=== PATIENT | male | born 1995 | race Caucasian/White ===

== ENCOUNTER 2019-03-11 12:11 | Emergency (ER) | payer OTHER ==
[~2019-03-11] VITALS: Ht 182.9 cm; Wt 63.5 kg
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
[2019-03-11 12:37] LABS: BASO # 0.1 x10^3/uL (0.0-0.2); BASO % 1 % (0-3); EOS # 0.2 x10^3/uL (0.0-0.7); EOS % 4 % (0-3); HEMATOCRIT 41.8 % (39.0-53.0); HEMOGLOBIN 14.3 g/dL (13.0-17.5); LYMPH # 2.2 x10^3/uL (1.0-4.8); LYMPH % 36 % (24-48); MEAN CORPUSCULAR HEMOGLOBIN 30 pg (25-35); MEAN CORPUSCULAR HGB CONC 34 g/dL (31-37); MEAN CORPUSCULAR VOLUME 86 fL (79-100); MONO # 0.5 x10^3/uL (0.0-1.1); MONO % 8 % (0-9); NEUT # 3.2 x10^3/uL (1.8-7.7); NEUT % 52 % (31-73); PLATELET COUNT 227 x10^3/uL (140-400); RED BLOOD COUNT 4.85 x10^6/uL (4.30-5.70); RED CELL DISTRIBUTION WIDTH 12.9 % (11.5-14.5); WHITE BLOOD COUNT 6.2 x10^3/uL (4.0-11.0)
[2019-03-11 12:38] LABS: CALCIUM 9.2 mg/dL (8.5-10.1); CREATININE 1.1 mg/dL (0.7-1.3); POTASSIUM 3.4 mmol/L (3.5-5.1)
[2019-03-11 12:46] LABS: ALBUMIN 4.2 g/dL (3.4-5.0); ALBUMIN/GLOBULIN RATIO 1.2 (1.0-1.7); TOTAL BILIRUBIN 0.7 mg/dL (0.2-1.0); TOTAL PROTEIN 7.7 g/dL (6.4-8.2)
--- NOTE | 2019-03-11 12:46 | EKG ---
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
[2019-03-11] MEDS ORDERED: HYDROcodone/APAP 5/325MG 1 TAB TABLET PO ONE (13:15)
[2019-03-11 13:40] LABS: BARBITURATES NEG (NEG); BENZODIAZEPINES NEG (NEG); CANNABINOIDS NEG (NEG); COCAINE NEG (NEG); METHADONE NEG (NEG); OPIATES NEG (NEG); PHENCYCLIDINE NEG (NEG)
[2019-03-11 13:46] LABS: AMPHETAMINE/METHAMPHETAMINE NEG (NEG)
[2019-03-11] MEDS ORDERED: CYCL10TA2 PO (14:23)
[2019-03-11 14:45] VITALS: BP 125/72
== END 2019-03-11 15:00 | disposition home or self-care (01) ==
LOC: ER 12:11
DX: S16.1XXD Strain of muscle, fascia and tendon at neck level, subsequent encounter (principal); S09.8XXA Other specified injuries of head, initial encounter; E87.6 Hypokalemia; R41.0 Disorientation, unspecified; Z88.6 Allergy status to analgesic agent; V43.52XA Car driver injured in collision with other type car in traffic accident, initial encounter; Y92.488 Other paved roadways as the place of occurrence of the external cause; Y93.89 Activity, other specified; Y99.8 Other external cause status
CPT/HCPCS: 36415; 70450; 72125; 80053; 80307; 85025; 93005; 99285-25

== ENCOUNTER 2022-01-18 17:05 | Emergency (ER) | payer OTHER ==
[~2022-01-18] VITALS: Ht 185.4 cm; Wt 71.8 kg
[~2022-01-18 17:05] MED LIST: CYCL10TA19 PO
[2022-01-18 17:17] VITALS: BP 145/75
[2022-01-18] MEDS ORDERED: LIDOCAINE 2% Multi-Dose 20 ML VIAL. IJ ONE (17:30)
[2022-01-18] MEDS ORDERED: HYDR-2761 PO (18:40)
--- NOTE | 2022-01-18 18:40 | PHYS DOC ---
Past Medical History Past Medical History: Seizure Past Surgical History: No Surgical History, Other Smoking Status: Never Smoker Alcohol Use: Rarely Drug Use: None General Adult EDM: Chief Complaint: LACERATION/AVULSION HPI: HPI: Patient is a 26 year old male who presents the ED today with right index finger laceration that occurred while cleaning a pizza cutter. Patient is right- handed. Review of Systems: Review of Systems: Constitutional: Denies fever or chills. [] Musculoskeletal: Denies back pain or joint pain. [] Integument: Reports right index finger laceration Neurologic: Denies headache, focal weakness or sensory changes. [] Psychiatric: Denies depression or anxiety. [] Heart Score: C/O Chest Pain: N/A Risk Factors: Risk Factors: DM, Current or recent (<one month) smoker, HTN, HLP, family history of CAD, obesity. Risk Scores: Score 0 - 3: 2.5% MACE over next 6 weeks - Discharge Home Score 4 - 6: 20.3% MACE over next 6 weeks - Admit for Clinical Observation Score 7 - 10: 72.7% MACE over next 6 weeks - Early Invasive Strategies Current Medications: Current Medications Medications (Trade) Dose Ordered Sig/Danny Start Time Stop Time Status Last Admin Dose Admin Lidocaine HCl (Lidocaine 2% 20ml Vial) 20 ml 1X ONCE 01/18/22 17:30 01/18/22 17:32 DC 01/18/22 17:36 20 ML Allergies: Allergies: Allergies Coded Allergies Type Severity Reaction Last Updated Verified NSAIDS (Non-Steroidal Anti-Inflamma Allergy Intermediate 01/18/22 Yes aspirin Allergy Intermediate 03/11/19 Yes Physical Exam: PE: Constitutional: Well developed, well nourished, no acute distress, non-toxic appearance. [] [] Skin: Ventral aspect of the right index finger middle phalanges with a laceration in V-shaped roughly 3 cm long, there is no obvious tendon involvement. Patient able to flex and extend the finger with no difficulties. Adequate radial sensation to the right index finger. +2 right radial pulse. Cap refill less than 2 seconds of right index finger Back: No tenderness, no CVA tenderness. [] Extremities: No tenderness, no cyanosis, no clubbing, ROM intact, no edema. [] Neurologic: Alert and oriented X 3, normal motor function, normal sensory function, no focal deficits noted. [] Psychologic: Affect normal, judgement normal, mood normal. [] Current Patient Data: Vital Signs: Vital Signs Date Time Temp Pulse Resp B/P (MAP) Pulse Ox O2 Delivery O2 Flow Rate FiO2 01/18/22 17:17 98.9 95 18 145/75 (98) 95 Room Air 98.9 EKG: EKG: [] Radiology/Procedures: Radiology/Procedures: Laceration/Wound Repair Wound Location: Right index finger Wound's Depth, Shape: v shape Wound Length (cm): approx. 3 cm Wound Explored: clean Irrigated w/ Saline (ccs): 30 Betadine Prep?: Y Anesthesia: 1% of lidocaine Volume Anesthetic (ccs): Approximately 5 cc Wound Repaired With: Prolene Suture Size/Type: 4.0/interrupted sutures Number of Sutures: 7 Progress : Wound was covered with nonstick dressing Course & Med Decision Making: Course & Med Decision Making Pertinent Labs and Imaging studies reviewed. (See chart for details) This is a 26-year-old male patient presenting to the ED today complaining of right index finger laceration. Laceration was cleaned and closed by me. Tet anus is up-to-date. Wound care instructions and return precautions provided Gualberto Disclaimer: Gualberto Disclaimer: This electronic medical record was generated, in whole or in part, using a voice recognition dictation system. Departure Departure Impression: Primary Impression: Finger laceration Qualified Codes: S61.210A - Laceration without foreign body of right index finger without damage to nail, initial encounter Disposition: HOME / SELF CARE / HOMELESS Condition: STABLE Referrals: CHITRA JEREZ APRN (PCP) Follow-up with your primary care doctor or the emergency room in 1 week for stitches to be removed Patient Instructions: Fingertip Laceration Additional Instructions: You have a laceration to the right index finger that was closed with stitches. Keep the area clean and dry. Apply Neosporin to the area twice a day for 7 days. You can shower and wash your hands as needed. Do not soak the affected finger. Please remove the dressing in 24 hours and leave it open to air if its not bleeding or draining. Monitor the area for any signs of infection including but not limited to increased redness, warmth, yellow drainage from the area and return to the ED or see your doctor. Please follow-up with your own doctor or the emergency room in 7 days to have the stitches removed Scripts Hydrocodone Bit/Acetaminophen (HYDROCODONE-APAP 5-325 ) 1 Tab Tablet 1 TAB PO PRN Q6HRS PRN for PAIN, #8 TAB 0 Refills Prov: JUAN ANTONIO WILLINGHAM APRN 01/18/22 JUAN ANTONIO WILLINGHAM APRN January 18, 2022 18:40
== END 2022-01-18 19:01 | disposition home or self-care (01) ==
LOC: ER 17:05
DX: S61.210A Laceration without foreign body of right index finger without damage to nail, initial encounter (principal); Z88.8 Allergy status to other drugs, medicaments and biological substances; Z88.6 Allergy status to analgesic agent; Y28.8XXA Contact with other sharp object, undetermined intent, initial encounter; Y93.89 Activity, other specified; Y92.89 Other specified places as the place of occurrence of the external cause; Y99.8 Other external cause status
CPT/HCPCS: 12002; 99283